=== PATIENT | male | born 1960 | race Caucasian/White ===

== ENCOUNTER 2019-07-19 14:04 | Emergency (ER) | payer OTHER, SELFPAY ==
[2019-07-19 14:26] VITALS: BP 145/78; PULSE 89; RESP 17; TEMP 36.7; O2SAT 97; BMI 29.9
--- NOTE | 2019-07-19 14:31 | W.ED.GENADLT ---
HPI - General Adult General: Chief complaint: General Medical Stated complaint: r hip pain Time Seen by Provider: 07/19/19 14:31 Source: patient Mode of arrival: ambulatory Limitations: no limitations History of Present Illness: HPI narrative: Patient comes in today for complaints of low back pain radiating into the right hip and thigh area. Patient states the pain is different than his usual back pain. Patient has had a history of a right hip replacement. Patient is concerned that the pain may be due to his hip replacement. Patient appears well. Patient appears in mild to moderate pain. Patient denies any routine medications or any use of blood thinners. Location: back and lower extremity (right hip) Review of Systems General: Reports: 10 or more systems reviewed and unremarkable except in HPI and below Musc: Reports: back pain and joint pain (right hip) PFS ED PFSH: Social History Smoking and tobacco status: current every day smoker Physical Exam Const: COMMON NORMALS: no acute distress and patient oriented x3 GENERAL APPEARANCE: cooperative HENMT: COMMON NORMALS: normocephalic and Normal external nose present HEAD & SCALP: normal to inspection and normocephalic NOSE: Normal external nose present MOUTH: Normal oral and palatal mucosa present THROAT: posterior oropharynx normal Eye: GENERAL EYE: appearance normal, both eyes and all related structures Neck/C-Spine: COMMON NORMALS: full ROM Chest: COMMONS NORMALS: normal inspection of the chest Resp: COMMON NORMALS: normal respiratory effort EFFORT & INSPECTION: Yes able to speak in complete sentences Cardio: COMMON NORMALS: regular rate and regular rhythm RATE: regular rate RHYTHM: regular rhythm GI: COMMON NORMALS: non-tender : COMMON NORMALS: Yes no CVA tenderness BLADDER/KIDNEY EXAM: Yes no CVA tenderness Back/Pelvis: COMMON NORMALS: no CVA tenderness LUMBAR SPINE/LOWER BACK: Yes paraspinal muscle tenderness Lumbar paraspinal muscle tenderness: right Extremity: COMMON NORMALS: normal to inspection Neuro: COMMON NORMALS: patient oriented x3 and moves all extremities Psych: COMMON NORMALS: mental status grossly normal and cooperative Skin: COMMON NORMALS: no rashes or lesions noted GENERAL SKIN EXAM: no rashes or lesions noted Course Vital Signs: Vital signs: Vital Signs Temperature 98.1 F 07/19/19 14:26 Pulse Rate 89 07/19/19 14:26 Respiratory Rate 17 07/19/19 14:26 Blood Pressure 145/78 07/19/19 14:26 Pulse Oximetry 97 07/19/19 14:26 MDM - General Adult MDM Narrative: Medical decision making narrative: Patient comes in today for low back pain. Patient was concerned due to some pain going down his right hip area. Patient has a history of hip replacement and thought something may be wrong with his hip replacement. On exam palpation of the right lumbar spine note muscle tenderness. Patient moves all extremities well. Respirations are even. Vital signs are normal. Differential diagnosis includes intervertebral disc disease, malfunction of hip arthroplasty, facet arthropathy, lumbar strain. X-ray noted normal alignment of right hip arthroplasty, significant degenerative disc disease of the lumbar spine at L5-S1. Reviewed exam with patient recommended treatment for intervertebral disc disease and facet arthropathy. Patient was given Toradol and a dose of dexamethasone. Patient was encouraged to continue activity as tolerated. Patient was encouraged to drink plenty of fluids with his medication and to follow-up with primary care for further treatment. Discharge Plan Discharge Patient Disposition: Home, Self-Care Clinical Impression: Degenerated intervertebral disc Qualifiers: Spinal region: lumbar Qualified Code(s): M51.36 - Other intervertebral disc degeneration, lumbar region Condition: Stable Prescriptions: New naproxen 500 mg tablet 500 mg PO BID Qty: 30 RF: 0 cyclobenzaprine 5 mg tablet 5 mg PO TID Qty: 20 RF: 0 No Action hydrocodone-acetaminophen 10-325 mg tablet 1 tab PO BID PRN (Reason: Pain) RF: 0 Aleve 220 mg Tablet 440 mg PO PRN RF: 0 Discharge Orders: Discharge Order (Routine); Ordered 07/19/19 Ordered By: Adams De La Rosa Referrals: Dewey Whitfield DO [Family Provider] - Discharge Diet: Usual diet Discharge Activity: Increase activity as tolerated Patient Instructions: Back Pain (ED) Activity Restrictions/Additional Instructions: Drink plenty of water with medication. Activity as tolerated. Gentle range of motion and stretching exercises. X-ray noted degenerative disc disease of the L5-S1 area. Recommend follow-up with primary care for further evaluation and treatment. Return to the ER for worsening symptoms, change in bowel or bladder pattern or new concerns. Coding Level of Care Code ED [employer] for [employer] Fwd Exam Comprehensive
--- NOTE | 2019-07-19 14:46 | XR_ITS ---
WS: [id number] XR lumbar spine 2-3V* [id number] REASON FOR EXAM: back pain FINDINGS: Degenerated disc changes L5-S1. Spurring anteriorly L3, L4. There is mild swelling of the spine toward the left side. The facets are normal. The lamina, pedicle, spinous processes are all normal as well as the transverse processes. XR/XR lumbar spine 2-3V* [id number] IMPRESSION: Degenerated disc changes L5-S1.
--- NOTE | 2019-07-19 14:46 | XR_ITS ---
WS: [id number] XR hip RT 2-3V wo/w pel* [id number] REASON FOR EXAM: right hip pain FINDINGS: Right hip shows total hip replacement arthroplasty the alignment of the prosthesis satisfac tory the stem of the prosthesis shows no dysfunction. The ilium, ischium, and pubis are normal. XR/XR hip RT 2-3V wo/w pel* [id number] IMPRESSION: Total hip arthroplasty satisfactory alignment.
[2019-07-19] MEDS: dexamethasone 10 mg/mL INJ IM (15:18)
[2019-07-19] MEDS: ketorolac 30 mg/mL INJ IM (15:18)
[2019-07-19 16:24] VITALS: BP 128/76; PULSE 84; RESP 16; O2SAT 97
== END 2019-07-19 15:45 | disposition home or self-care (01) ==
PROVIDERS: Emergency Provider Nurse Practitioner Family; Family Provider Internal Medicine
DX: M51.36 Other intervertebral disc degeneration, lumbar region (principal); F17.210 Nicotine dependence, cigarettes, uncomplicated
CPT/HCPCS: 12345; 72100; 73502; 96372; 99282; 99283; J1100; J1885

== ENCOUNTER 2019-11-22 15:57 | Outpatient (CLI) | payer OTHER, SELFPAY ==
--- NOTE | 2019-11-22 15:59 | CT_ITS ---
WS: [id number] CT CHEST WITHOUT INTRAVENOUS CONTRAST HISTORY: PULMONARY NODULE TECHNIQUE: Contiguous 5 mm axial imaging performed on the thorax. Coronal and sagittal reformats are submitted. All CT scans at [facility] use at least one of these dose optimization techniq ues: automated exposure control; mA and/or kV adjustment per patient size (includes targeted exams wh ere dose is matched to clinical indication); or iterative reconstruction. CONTRAST: None DLP: 934.88 mGycm COMPARISON: 05/03/2018 CT chest. Lungs and central airway: Mild pulmonary hyperexpansion. Again noted is the noncalcified 2 mm nodule in the RIGHT middle lobe. No increase in size since the prior study. There are no suspicious masses o r pneumonia. Pleura: Normal. No pleural effusion. Heart and pericardium: Normal size heart with no pericardial effusion. Mediastinum and tere: Small benign-appearing stable lymph nodes. Vessels: Normal size aortic and pulmonary artery. Mild atherosclerosis aorta. 0No coronary artery watl cifications. Chest wall and lower neck: No soft tissue masses. Upper abdomen: Mildly contracted gallbladder. No adrenal mass. Mild hepatic steatosis. Osseous structures: No destructive process. CT/CT chest wo con [id number] IMPRESSION: 1. No change in the 2 mm nodule in the RIGHT middle lobe. There are no enlargi ng nodules. No additional evaluation of pulmonary micronodules necessary at thi s time. 2. No adenopathy. 3. Mild atherosclerosis aorta.
== END 2019-11-22 15:58 | disposition home or self-care (01) ==
LOC: RADWPI 15:58
PROVIDERS: Family Provider Internal Medicine; PCP Internal Medicine; Visit Provider Internal Medicine
DX: R91.1 Solitary pulmonary nodule (principal); I70.0 Atherosclerosis of aorta
CPT/HCPCS: 71250

== ENCOUNTER 2019-11-27 15:42 | Outpatient (CLI) | payer OTHER, SELFPAY ==
--- NOTE | 2019-11-27 | MR_ITS ---
WS: [id number] MRI LUMBAR SPINE NONCONTRAST HISTORY: BACK PAIN WITH RIGHT SIDED RADICULOPATHY COMPARISON: None available. TECHNIQUE: Sagittal and axial multisequence imaging is submitted. Normal lumbar alignment. There is a small amount of reactive marrow edema in the adjacent endplates o f L4 and L5. No acute fracture. Disc space narrowing and desiccation is mild throughout, greatest at L5-S1. Conus terminates normally at L1-2 disc level. L1-L2: Mild annular disc bulging and facet arthritis. No significant stenosis. L2-L3: Mild annular disc bulging and facet arthritis. No stenosis. L3-L4: Mild annular disc bulging and mild osteophytic ridging. Tiny central disc protrusion and fissu re is noted. Mild facet and ligamentum flavum arthritis. Mild encroachment and narrowing of the centr al canal and subarticular recesses. There is minimal narrowing of the foramen. L4-L5: Diffuse moderate annular disc bulging with facet and ligamentum flavum arthritis. Small amount of fluid in the facet joints. Diffuse mild osteophytic ridging is also present. Focal RIGHT paracent ral disc protrusion extends just below the disc level. Mild encroachment upon the ventral thecal sac. Mild central and subarticular recess stenosis. Moderate to severe LEFT foraminal stenosis and mild R IGHT foraminal narrowing. L5-S1: Mild annular disc bulging and osteophytic ridging. Moderate facet and ligamentum flavum hypert rophy. To severe bilateral foraminal stenosis due to combination of disc and osteophyte disease, most significant on the LEFT. Atherosclerosis aorta is mild. MR/MR lumbar spine wo con* [id number] IMPRESSION: 1. Moderate to severe LEFT foraminal stenosis and mild RIGHT foraminal stenosi s at L4-5. 2. Mild central and subarticular recess stenosis at L4-5 and a focal RIGHT par acentral disc protrusion. 3. Moderate to severe bilateral foraminal stenosis L5-S1 due to combination of disc and osteophyte disease, most significant on the LEFT. 4. Mild central and subarticular recess and foraminal narrowing at L4-5.
== END 2019-11-27 15:43 | disposition home or self-care (01) ==
LOC: RADSHAW 15:48
PROVIDERS: PCP Internal Medicine; Visit Provider Internal Medicine
DX: M54.16 Radiculopathy, lumbar region (principal); M48.061 Spinal stenosis, lumbar region without neurogenic claudication; M51.26 Other intervertebral disc displacement, lumbar region; M48.07 Spinal stenosis, lumbosacral region
CPT/HCPCS: 72148

== ENCOUNTER → 2020-01-19 08:30 | Outpatient (BNVA) | payer OTHER, SELFPAY | PROVIDERS: PCP Internal Medicine; Referring Provider Orthopaedic Surgery; Visit Provider Anesthesiology Pain Medicine | DX: M54.9 Dorsalgia, unspecified (principal); M48.061 Spinal stenosis, lumbar region without neurogenic claudication; M48.07 Spinal stenosis, lumbosacral region; F17.210 Nicotine dependence, cigarettes, uncomplicated; Z79.891 Long term (current) use of opiate analgesic | CPT/HCPCS: 99205 ==

== ENCOUNTER → 2020-01-24 13:48 | Outpatient (BNVA) | payer OTHER, SELFPAY | PROVIDERS: PCP Internal Medicine; Visit Provider Anesthesiology Pain Medicine | DX: M47.816 Spondylosis without myelopathy or radiculopathy, lumbar region (principal); M54.9 Dorsalgia, unspecified | CPT/HCPCS: 64493; 64494; 64495; J3490 ==

== ENCOUNTER → 2020-02-22 13:18 | Outpatient (BNVA) | payer OTHER, SELFPAY | PROVIDERS: PCP Internal Medicine; Visit Provider Anesthesiology Pain Medicine | DX: M54.41 Lumbago with sciatica, right side (principal); M54.9 Dorsalgia, unspecified; Z79.891 Long term (current) use of opiate analgesic | CPT/HCPCS: 99213; 99214 ==

== ENCOUNTER → 2020-03-04 13:50 | Outpatient (BNVA) | payer OTHER, SELFPAY | PROVIDERS: PCP Internal Medicine; Visit Provider Anesthesiology Pain Medicine | DX: M47.816 Spondylosis without myelopathy or radiculopathy, lumbar region (principal); M54.9 Dorsalgia, unspecified | CPT/HCPCS: 64635; 64636; J1030 ==

== ENCOUNTER → 2020-03-19 12:55 | Outpatient (BNVA) | payer OTHER, SELFPAY | PROVIDERS: PCP Internal Medicine; Visit Provider Anesthesiology Pain Medicine | DX: M47.816 Spondylosis without myelopathy or radiculopathy, lumbar region (principal); M54.9 Dorsalgia, unspecified; Z79.891 Long term (current) use of opiate analgesic | CPT/HCPCS: 64635; 64636; J1030 ==

== ENCOUNTER → 2020-04-11 14:42 | Outpatient (BNVA) | payer OTHER, SELFPAY | PROVIDERS: PCP Internal Medicine; Visit Provider Anesthesiology Pain Medicine | DX: M54.9 Dorsalgia, unspecified (principal); M54.2 Cervicalgia; F17.210 Nicotine dependence, cigarettes, uncomplicated; Z79.891 Long term (current) use of opiate analgesic | CPT/HCPCS: 99214 ==